=== PATIENT | male | born 1960 | race Two or more races ===

== ENCOUNTER 2020-07-05 05:00 | Day surgery (SDC) | payer OTHER ==
[~2020-07-05 05:00] MED LIST: AVAPRO150 MG PO
== END 2020-07-05 13:30 | disposition home or self-care (01) ==
LOC: CIR.AMB 05:00
PROVIDERS: ATTEND Specialist
DX: K40.91 Unilateral inguinal hernia, without obstruction or gangrene, recurrent (principal); Z20.828 Contact with and (suspected) exposure to other viral communicable diseases